=== PATIENT | male | born 1985 | race Native Hawaiian/Other Pacific Islander ===

== ENCOUNTER 2017-12-09 14:00 | Emergency (ER) | payer OTHER ==
[~2017-12-09] VITALS: Ht 167.6 cm; Wt 72.6 kg
[2017-12-09] MEDS ORDERED: PROZAC10 MG PO (14:08)
[2017-12-09] MEDS ORDERED: TRILEPTAL300 MG PO (14:08)
[2017-12-09 16:04] VITALS: BP 120/78; TEMP 98
== END 2017-12-09 16:04 ==
LOC: ED 14:00 → EDP 14:00 → ED 16:04
DX: S00.83XA Contusion of other part of head, initial encounter (principal); S16.1XXA Strain of muscle, fascia and tendon at neck level, initial encounter; Y04.2XXA Assault by strike against or bumped into by another person, initial encounter; Y93.89 Activity, other specified; Y92.198 Other place in other specified residential institution as the place of occurrence of the external cause
CPT/HCPCS: 99283